=== PATIENT | male | born 1990 | race Caucasian/White ===

== ENCOUNTER 2017-01-26 06:35 | Emergency (ER) | payer MEDICAID ==
[~2017-01-26] VITALS: Wt 54.0 kg
[~2017-01-26 06:35] MED LIST: LANT3I SC; NOVO3I SC
[2017-01-26] MEDS ORDERED: SOD CHLORIDE 0.9% 1,000 ML IV STA (06:57)
[2017-01-26] MEDS ORDERED: ONDANSETRON 4 MG INJ IV STA (06:57)
[2017-01-26] MEDS ORDERED: HYDROmorphONE 1 MG/ML SYG IV STA (06:57)
[2017-01-26 07:23] LABS: ADD SCAN DIFF NO
[2017-01-26 07:25] LABS: ABNORMAL IP MESSAGE 1; BASOPHILS % 0.3 % (0.0-2.0); EOSINOPHILS # 0.2 10^3/ul (0.0-0.5); EOSINOPHILS % 1.3 % (0.0-7.0); HEMATOCRIT 45.4 % (42.0-52.0); HEMOGLOBIN 15.5 g/dl (14.0-18.0); LYMPHOCYTES # 5.6 10^3/ul (0.8-2.9); LYMPHOCYTES % 37.2 % (15.0-51.0); MEAN CORPUSCULAR HEMOGLOBIN 30.6 pg (29.0-33.0); MEAN CORPUSCULAR HGB CONC 34.1 g/dl (32.0-37.0); MEAN CORPUSCULAR VOLUME 89.5 fl (82.0-101.0); MEAN PLATELET VOLUME 11.9 fl (7.4-10.4); MONOCYTES % 6.8 % (0.0-11.0); NEUTROPHIL # 8.1 10^3/ul (1.6-7.5); PLATELET COUNT 298 10^3/UL (140-415); RED BLOOD COUNT 5.07 10^6/ul (4.70-6.10); RED CELL DISTRIBUTION WIDTH 12.2 % (11.5-14.5)
--- NOTE | 2017-01-26 07:38 | RADRPT ---
PROCEDURE: CT ABDOMEN/PELVIS WITHOUT CONTRAST CLINICAL INDICATION: 26-year-old male with upper abdominal pain and vomiting. TECHNIQUE: The study was performed utilizing a GE Vitasolpeed VCT 64-slice CT scanner. Direct axia l sections were obtained through the abdomen and pelvis without the use of intravenous contrast mate rial. Sagittal and coronal reformations were obtained. One or more of the following dose reduction t echniques were utilized: automated exposure control, adjustment of the mA and/or kV according to pat ient's size or use of iterative reconstruction technique. [facility] CTD/vol = 7.8 mGy; Total Exam DLP = 459.2 mGy-cm. COMPARISON: None. FINDINGS: The lung bases are unremarkable. There is no evidence for significant pleural effusion. The liver has a normal size and contour without focal areas of abnormal density. No intrahepatic nor extrahepa tic biliary ductal dilatation is seen. The gallbladder demonstrates no wall thickening nor perichole cystic fluid. No biliary stones are evident. The pancreas is without areas of abnormal attenuation. The spleen is identified and has a normal size without abnormal density. The adrenal glands are unr emarkable. The kidneys are without abnormal density. No hydroureteronephrosis nor nephroureterolithi asis is evident. The urinary bladder contains urine. There are dilated fluid-filled loops of distal small bowel without evidence for transition point. This is suggestive of an enteritis. Mild retain ed stool is seen within the colon. The appendix is retrocecal and is without abnormal thickening or surrounding inflammatory reaction. There is no significant free fluid. Bilateral calcified vas deferens is noted. The aortoiliac vessels are without aneurysmal dilatation. The osseous structures are intact. IMPRESSION: 1. No CT evidence for obstructive uropathy or renal calculi. 2. Fluid-filled dilated loops of small bowel suggestive of an enteritis without obstruction. 3. Retained stool. 4. No CT evidence for appendicitis. .Shiraz Francisco MD, MD Date Time Electronically viewed and signed by .Shiraz Francisco MD, MD on 01/26/2017 07:38 .M/
[2017-01-26 07:40] LABS: ALBUMIN 4.4 g/dl (3.3-4.9); POTASSIUM 4.5 mmol/L (3.5-5.1)
[2017-01-26 07:42] LABS: BILIRUBIN,INDIRECT 0.3 mg/dl (0-1.1); BILIRUBIN,TOTAL 0.3 mg/dl (0.2-1.3); CREATININE 0.81 mg/dl (0.61-1.24)
[2017-01-26 07:43] LABS: ALBUMIN/GLOBULIN RATIO 1.33; CALCIUM 9.7 mg/dl (8.4-10.2); TOTAL PROTEIN 7.7 g/dl (6.1-8.1)
[2017-01-26] MEDS ORDERED: INSULIN REGULAR 10 ML INJ SC ONE (08:00)
[2017-01-26] MEDS ORDERED: INSULIN REGULAR, HUMAN 100 UNIT/1 ML 3ML VIAL SC ONE (08:30)
[2017-01-26 08:53] LABS: ADD UMIC NO; URINE BILIRUBIN (Dip) NEGATIVE (NEGATIVE); URINE BLOOD (Dip) NEGATIVE (NEGATIVE); URINE COLOR LT. YELLOW (YELLOW); URINE GLUCOSE (Dip) >=1000 % (NEGATIVE); URINE KETONES (Dip) NEGATIVE (NEGATIVE); URINE LEUKOCYTE ESTERASE (Dip) NEGATIVE (NEGATIVE); URINE NITRITE (Dip) NEGATIVE (NEGATIVE); URINE TOTAL PROTEIN (Dip) NEGATIVE (NEGATIVE); URINE UROBILINOGEN (Dip) 0.2 E.U./dL (0.1-1.0)
--- NOTE | 2017-01-26 10:13 | RADRPT ---
PROCEDURE: US Abdomen. CLINICAL INDICATION: 26-year-old male with abdominal pain. TECHNIQUE: Multiple real-time images were acquired of the patient's abdomen and retroperitoneum ut ilizing a high resolution transducer. COMPARISON: CT scan abdomen pelvis 01/26/2017. FINDINGS: The pancreas is normal. The liver is unremarkable. The hepatic and portal veins are patent. No he patic mass or intrahepatic biliary ductal dilatation is identified. On the image 36, there is a well marginated echogenic lesion in the liver which may be the result of a hemangioma. Additional images were performed later in the study. It measures 1.3 x 1.6 x 1.7 cm. Follow-up imaging is recommend ed to confirm stability. The gallbladder is unremarkable. The common bile duct measures 3.9 mm. The right kidney measures 10.4 cm in length and is unremarkable. The area marked in the area of the right hilum by the technologist likely represents normal kidney parenchyma. No lesion is identified on the CT scan performed the same day. The pancreas is not well visualized. No free fluid is noted in the abdomen. IMPRESSION: 1. There is a well marginated echogenic lesion in the inferior right lobe of the liver which is like ly a hemangioma. Follow-up imaging is recommended in 3-6 months if the patient is at high risk for malignancy. Otherwise, follow-up imaging is recommended in 12 months. 2. Normal gallbladder and common bile duct. 3. The area outlined in the mid pole right kidney likely represents normal renal parenchyma. Follo w-up imaging is recommended in conjunction with the liver lesion. RPTAT:AAJJ Physician Jaki Date Time Electronically viewed and signed by Physician Jaki on 01/26/2017 10:12 JM/
--- NOTE | 2017-01-26 10:28 | ERD ---
ER Documentation Chief Complaint Date/Time DATE: 01/26/17 TIME: 06 Chief Complaint epigastric pain since last night with vomiting, no diarrhea no dysuria HPI 26-year-old male presents to the emergency department complaining of abdominal pain. Patient states he began having a diffuse, nonspecific, visceral abdominal discomfort that started spontaneously. It began last night. He describes it as a 9/10. He does not localize. It is associated with nausea and nonbilious nonbloody emesis but no diarrhea or dysuria. Patient reports no hematuria fevers or chills. ROS All systems reviewed and are negative except as per history of present illness. Medications Home Meds Active Scripts Insulin Aspart* (Novolog Insulin Pen*) 100 Unit/Ml Soln, 12 UNIT SC WITH MEALS BEDTIME for 30 Days, BOTTLE Prov:FIFI FARFAN MD 09/02/14 Reported Medications Insulin Glargine* (Lantus*) 100 Unit/Ml Soln, 45 UNIT SC QAM, EA 09/01/14 Allergies Allergies: Coded Allergies: No Known Allergies (Verified Allergy, Mild, 01/26/17) PMhx/Soc History of Surgery: No Anesthesia Reaction: No Hx Neurological Disorder: No Hx Respiratory Disorders: No Hx Cardiac Disorders: No Hx Psychiatric Problems: No Hx Miscellaneous Medical Probl: Yes (DM) Hx Alcohol Use: Yes Hx Substance Use: Yes (marijuana ) Hx Tobacco Use: Yes Smoking Status: Current every day smoker FmHx Noncontributory for chief complaint Physical Exam Vitals Vital Signs Date Time Temp Pulse Resp B/P Pulse Ox O2 Delivery O2 Flow Rate FiO2 01/26/17 07:58 70 18 102/56 99 Room Air 01/26/17 06:41 98.0 85 21 160/88 100 Physical Exam GENERAL: Well-developed, well-nourished but uncomfortable appearing HEENT: Pupils equal, round, and reactive to light. EOMI. There is no scleral icterus. NECK: C-spine is soft and supple, there is no meningismus. There is no cervical lymphadenopathy. LUNGS: Clear to auscultation bilaterally. There are no rales, wheezes or rhonchi. HEART: Regular rate and rhythm, no murmurs, clicks, rubs or gallops. ABDOMEN: Soft, non-tender, non-distended. There are bowel sounds in all four quadrants. No rebound or guarding. No CVA tenderness EXTREMITIES: There is no peripheral cyanosis or edema. No focal swelling or erythema. NEURO: The patient moves all four extremities with 5/5 strength. Cranial nerves II - XII are intact. Normal gait. Alert and oriented SKIN: There is no apparent rash or petechiae. HEME/LYMPHATIC: There is no evidence of excessive bruising or lymphedema. PSYCHIATRIC: The patient does not appear anxious or depressed. Result Diagram: 01/26/17 0701/26/17 07 Results 24 hrs Laboratory Tests Test 01/26/17 06:47 01/26/17 07:00 01/26/17 08:07 01/26/17 08:22 Bedside Glucose 441mg/dL 350mg/dL White Blood Count 15.010^3/ul Red Blood Count 5.0710^6/ul Hemoglobin 15.5g/dl Hematocrit 45.4% Mean Corpuscular Volume 89.5fl Mean Corpuscular Hemoglobin 30.6pg Mean Corpuscular Hemoglobin Concent 34.1g/dl Red Cell Distribution Width 12.2% Platelet Count 29896^3/UL Mean Platelet Volume 11.9fl Neutrophils % 54.0% Lymphocytes % 37.2% Monocytes % 6.8% Eosinophils % 1.3% Basophils % 0.3% Nucleated Red Blood Cells % 0.0/100WBC Neutrophils # 8.110^3/ul Lymphocytes # 5.610^3/ul Monocytes # 1.010^3/ul Eosinophils # 0.210^3/ul Basophils # 0.010^3/ul Nucleated Red Blood Cells # 0.010^3/ul Sodium Level 139mmol/L Potassium Level 4.5mmol/L Chloride Level 101mmol/L Carbon Dioxide Level 25mmol/L Anion Gap 18 Blood Urea Nitrogen 19mg/dl Creatinine 0.81mg/dl Glucose Level 504mg/dl Calcium Level 9.7mg/dl Total Bilirubin 0.3mg/dl Direct Bilirubin 0.00mg/dl Indirect Bilirubin 0.3mg/dl Aspartate Amino Transf (AST/SGOT) 20IU/L Alanine Aminotransferase (ALT/SGPT) 33IU/L Alkaline Phosphatase 77IU/L Total Protein 7.7g/dl Albumin 4.4g/dl Globulin 3.30g/dl Albumin/Globulin Ratio 1.33 Lipase 91U/L Urine Color LT. YELLOW Urine Clarity CLEAR Urine pH 6.0 Urine Specific [place] <=1.005 Urine Ketones NEGATIVE Urine Nitrite NEGATIVE Urine Bilirubin NEGATIVE Urine Urobilinogen 0.2 E.U./dL Urine Leukocyte Esterase NEGATIVE Urine Hemoglobin NEGATIVE Urine Glucose >=1000% Urine Total Protein NEGATIVE Current Medications Medications (Trade) Dose Ordered Sig/Sita Route PRN Reason Start Time Stop Time Status Last Admin Dose Admin Sodium Chloride (NS) 1,000 ml @ 1,000 mls/hr Q1H STAT IV 01/26/17 06:57 01/26/17 07:56 DC 01/26/17 07:03 Hydromorphone HCl (Dilaudid) 1 mg ONCE STAT IV 01/26/17 06:57 01/26/17 06:59 DC 01/26/17 07:03 Ondansetron HCl (Zofran Inj) 4 mg ONCE STAT IV 01/26/17 06:57 01/26/17 06:59 DC 01/26/17 07:03 Insulin Human Regular (Novolin-R) 8 unit ONCE ONCE SC 01/26/17 08:00 01/26/17 08:01 DC Insulin Human Regular (Humulin R) 8 unit ONCE ONCE SC 01/26/17 08:30 01/26/17 08:31 DC 01/26/17 08:20 Procedures/MDM Patient was taken to a room, seen and evaluated. Comfort measures were initiated. Diagnostic tests were ordered and reviewed. 3 LEAD RHYTHM STRIP: Normal sinus rhythm without ectopy RADIOLOGY: reviewed with the radiologist REEVALUATION: Patient has been reevaluated with serial examinations of his abdomen that remained benign. He is comfortable with complete resolution of his discomfort. His blood sugars improving and now in the low 200s. MEDICAL DECISION MAKIN-year-old insulin requiring diabetic presents with abdominal pain of uncertain etiology. Differential diagnosis entertained was broad and potential high acuity. Ultimately, patient's diagnostic evaluation including lab tests, imaging studies and re-evaluations of his abdomen remained benign. He has no obvious evidence of appendicitis, cholecystitis, kidney stones or other high-risk concerns. Patient's blood sugars have been controlled with insulin and he does not appear to be in DKA based on lab tests. Overall, patient appears to be clinically improved and now appropriate for outpatient care. Departure Diagnosis: Primary Impression: Abdominal pain Condition: Stable Patient Instructions: Abdominal Pain, Diabetic Hyperglycemia Additional Instructions: Use your insulin and watch your blood sugars carefully. Return for any problems or concerns PRASHANTH JASSO January 26, 2017 10:28
[2017-01-26] MEDS ORDERED: INSU100C SQ (10:33)
[2017-01-26 10:38] VITALS: BP 111/52; PULSE 72; RESP 18; TEMP 98
== END 2017-01-26 10:42 | disposition home or self-care (01) ==
LOC: E/R 06:35
DX: R10.84 Generalized abdominal pain (principal); R11.2 Nausea with vomiting, unspecified; E11.9 Type 2 diabetes mellitus without complications; F17.210 Nicotine dependence, cigarettes, uncomplicated; Z79.4 Long term (current) use of insulin
CPT/HCPCS: 36415; 74176; 76705; 80053; 81003; 82962; 83690; 85025; 96361; 96372; 96374; 96375; J1170; J1815; J2405; J7030; Z7502